=== PATIENT | female | born 1975 | race Hispanic/Latino ===

== ENCOUNTER 2017-04-09 08:29 | Emergency (ER) | payer OTHER ==
[2017-04-09 08:41] VITALS: BMI 25.5
--- NOTE | 2017-04-09 08:55 | ED PDOC ---
Arrival/HPI - General Chief Complaint: Dental Pain Time Seen by Provider: 04/09/17 08:32 Historian: Patient - History of Present Illness Narrative History of Present Illness (Text): 04/09/17 08:32 Reva Araujo is a 41 year old female who presents to the emergency department complaining of right upper molar pain and facial swelling that began 2 days ago. Patient states that she took Amoxicillin that was left over from another visit, but swelling has not improved. Patient denies any fever, chills, or any other complaint at this time. PMD: Dr. Mario Olivera 04/09/17 12:59 Time/Duration: < week Symptom Onset: Gradual Symptom Course: Unchanged Severity Level: Mild Activities at Onset: Rest Context: Home Past Medical History - Provider Review Nursing Documentation Reviewed: Yes - Infectious Disease Hx of Infectious Diseases: None - Past Medical History Past Medical History: No Previous - Musculoskeletal/Rheumatological Hx Back Pain: Yes - Psychiatric Hx Psychophysiologic Disorder: Yes Hx Depression: Yes Hx Substance Use: No - Surgical History Hx Tonsillectomy: Yes - Anesthesia Hx Anesthesia: No Hx Anesthesia Reactions: No Hx Malignant Hyperthermia: No - Suicidal Assessment Feels Threatened In Home Enviroment: No Family/Social History - Physician Review Nursing Documentation Reviewed: Yes Family/Social History: No Known Family HX Smoking Status: Current Some Days Smoker Hx Alcohol Use: No Hx Substance Use: No Hx Substance Use Treatment: No Allergies/Home Meds Allergies/Adverse Reactions: Allergies No Known Allergies Allergy (Verified 04/09/17 08:41) Home Medications: Home Meds Medication Instructions Recorded Confirmed Buprenorphine HCl/Naloxone HCl 1 film PO DAILY 04/09/17 04/09/17 [Suboxone 8 mg-2 mg Sl Film] Review of Systems - Physician Review All systems were reviewed & negative as marked: Yes - Review of Systems Constitutional: absent: Fevers, Night Sweats Eyes: absent: Vision Changes ENT: Other (Right upper molar pain and facial swelling). absent: Hearing Changes Respiratory: absent: SOB Cardiovascular: absent: Chest Pain Gastrointestinal: absent: Abdominal Pain Genitourinary Female: absent: Dysuria Musculoskeletal: absent: Arthralgias, Back Pain Skin: absent: Rash, Pruritis Neurological: absent: Headache, Dizziness Endocrine: absent: Diaphoresis Hemo/Lymphatic: absent: Adenopathy Psychiatric: absent: Anxiety Physical Exam Vital Signs Reviewed: Yes Vital Signs Temp Pulse Resp BP Pulse Ox 04/09/17 09:37 98 F 75 20 125/85 98 04/09/17 08:39 98.2 F 83 18 130/73 99 Temperature: Afebrile Blood Pressure: Normal Pulse: Regular Respiratory Rate: Normal Appearance: Positive for: Well-Appearing, Non-Toxic, Comfortable Pain Distress: None Mental Status: Positive for: Alert and Oriented X 3 - Systems Exam Head: Present: Tenderness (tenderness to palpation to right upper molar; no buccal swelling or fluctuance), Swelling (mild right facial swelling) Pupils: Present: PERRL Extroacular Muscles: Present: EOMI Conjunctiva: Present: Normal Mouth: Present: Moist Mucous Membranes Neck: Present: Normal Range of Motion Respiratory/Chest: Present: Clear to Auscultation, Good Air Exchange. No: Respiratory Distress, Accessory Muscle Use Cardiovascular: Present: Regular Rate and Rhythm, Normal S1, S2. No: Murmurs Abdomen: Present: Normal Bowel Sounds. No: Tenderness, Distention, Peritoneal Signs Back: Present: Normal Inspection Upper Extremity: Present: Normal Inspection. No: Cyanosis, Edema Lower Extremity: Present: Normal Inspection. No: Edema Neurological: Present: GCS=15, CN II-XII Intact, Speech Normal Skin: Present: Warm, Dry, Normal Color. No: Rashes Psychiatric: Present: Alert, Oriented x 3, Normal Insight, Normal Concentration Medical Decision Making ED Course and Treatment: 04/09/17 08:32 Impression: 41 year old female complaining of right upper molar pain and facial swelling for 2 days. Differential Diagnosis include but are not limited to: periapical abscess/ dental caries. Plan: -- Decadron -- Reassess and disposition Prior Visits: Notes and results from previous visits were reviewed. Patient last seen in ED on 11/23/16 for right ear pain and discharge that day. Patient was discharged home. Progress Notes: 04/09/17 08:35 Patient is drinking coffee and is in no acute distress. Patient advised to go to dentist and return if worsening. no e/o of buccal abscess. pt agrees to see dentist outpt. 04/09/17 12:59 - Medication Orders Current Medication Orders: Discontinued Medications Dexamethasone (Decadron) 10 mg PO STAT STA Stop: 04/09/17 08:49 Last Admin: 04/09/17 09:13 Dose: 10 mg - Scribe Statement The provider has reviewed the documentation as recorded by the Yumiko Moore Provider Scribe Attestation: All medical record entries made by the Scribe were at my direction and personally dictated by me. I have reviewed the chart and agree that the record accurately reflects my personal performance of the history, physical exam, medical decision making, and the department course for this patient. I have also personally directed, reviewed, and agree with the discharge instructions and disposition. Disposition/Present on Arrival - Present on Arrival Any Indicators Present on Arrival: No History of DVT/PE: No History of Uncontrolled Diabetes: No Urinary Catheter: No History of Decub. Ulcer: No History Surgical Site Infection Following: None - Disposition Have Diagnosis and Disposition been Completed?: Yes Diagnosis: Toothache, Periapical abscess Disposition: HOME/ ROUTINE Disposition Time: 09:00 Condition: STABLE Discharge Instructions (ExitCare): Dental Caries (ED), Toothache (ED) Additional Instructions: please follow up with your doctor. return to er with worsening symptoms or concerns Prescriptions: Amoxicillin/Clavulanate [Augmentin 875 MG-125 MG] 1 tab PO BID #20 tab Ibuprofen [Motrin Tab] 600 mg PO Q8 PRN #20 tab PRN Reason: Pain, Mild (1-3) Referrals: [facility] [Outside] - Follow up with primary [facility] [place] [Outside] - Follow up with primary
[2017-04-09 09:40] VITALS: BP 125/85; PULSE 75; RESP 20; TEMP 98; O2SAT 98
== END 2017-04-09 09:48 | disposition home or self-care (01) ==
LOC: ED 08:29
DX: K08.89 Other specified disorders of teeth and supporting structures (principal); K04.7 Periapical abscess without sinus
CPT/HCPCS: 99282; J8540